=== PATIENT | male | born 2000 | race Hispanic/Latino ===

== ENCOUNTER 2023-03-29 16:56 | Emergency (ER) | payer SELFPAY ==
[2023-03-29] MEDS ORDERED: Ondansetron PF 4 MG/2 ML Vial ONE (17:05)
[2023-03-29] MEDS ORDERED: Morphine 4 MG/ML VIAL ONE (17:05)
[2023-03-29] MEDS ORDERED: Bacitracin 1 PK ONE (17:25)
[2023-03-29] MEDS ORDERED: Boostrix 0.5 ML (Tdap) VIAL (>/=7 yrs of age) ONE (17:25)
[2023-03-29] MEDS ORDERED: Morphine 2 MG/ML VIAL ONE (17:28)
[2023-03-29] MEDS ORDERED: HYDROcodone/Acetaminophen 5/325 mg Tablet ONE (17:29)
== END 2023-03-29 18:00 | disposition home or self-care (01) ==
LOC: NAV ERS 16:56
DX: S68.123A Partial traumatic metacarpophalangeal amputation of left middle finger, initial encounter (principal); Z23 Encounter for immunization; W27.0XXA Contact with workbench tool, initial encounter
CPT/HCPCS: 90471; 90715; 96374; 96375; J2270; J2272; J2405